=== PATIENT | male | born 1955 | race Caucasian/White ===

== ENCOUNTER 2018-07-21 11:26 | Day surgery (SDC) | payer OTHER ==
[2018-07-21] MEDS ORDERED: LIDOCAINE 4% SOLUTION 50 ML BTL (13:53)
[2018-07-21] MEDS ORDERED: MIDAZOLAM 1 MG/ML 2 ML INJ ×2 (14:53)
[2018-07-21] MEDS ORDERED: FENTAnyl 50 MCG/ML VIAL (14:53)
== END 2018-07-21 16:46 | disposition home or self-care (01) ==
LOC: GIL 11:26
DX: Z12.11 Encounter for screening for malignant neoplasm of colon (principal); K44.9 Diaphragmatic hernia without obstruction or gangrene; K29.00 Acute gastritis without bleeding; K64.8 Other hemorrhoids
CPT/HCPCS: 43235